=== PATIENT | male | born 1975 | race Caucasian/White ===

== ENCOUNTER 2024-04-24 05:31 | Outpatient (CLI) | payer OTHER | END 2024-04-24 23:59 | disposition home or self-care (01) | LOC: MRI02 05:31 | PROVIDERS: ATTEND Family Medicine Sports Medicine | DX: S66.211A Strain of extensor muscle, fascia and tendon of right thumb at wrist and hand level, initial encounter (principal); S46.211A Strain of muscle, fascia and tendon of other parts of biceps, right arm, initial encounter; S46.219A Strain of muscle, fascia and tendon of other parts of biceps, unspecified arm, initial encounter; S53.21XA Traumatic rupture of right radial collateral ligament, initial encounter; X58.XXXA Exposure to other specified factors, initial encounter; Y93.89 Activity, other specified; Y92.89 Other specified places as the place of occurrence of the external cause; Y99.8 Other external cause status | CPT/HCPCS: 73221 ==